=== PATIENT | male | born 1950 | race Caucasian/White ===

== ENCOUNTER 2018-10-12 12:37 | Outpatient (CLI) | payer MEDICARE, BC ==
[2018-10-12 13:39] LABS: #Basophils 0.1 thou/uL (0.0-0.2); #Eosinphils 0.1 thou/uL (0.0-0.7); #Lymphocytes 1.7 thou/uL (1.20-3.40); #Monocytes 0.3 thou/uL (0.11-0.59); #Neutrophils 4.1 thou/uL (1.40-6.50); %Basophils 0.9 % (0.0-1.0); %Lymphocytes 27.4 % (21.0-51.0); %Monocytes 4.5 % (0.0-10.0); %Neutrophils 65.2 % (42.0-75.0); Hemoglobin 13.9 g/dL (14.0-18.0); Mean Corpuscular HGB CONC 34.1 g/dL (32.0-36.0); Mean Corpuscular Hemoglobin 29.1 pg (27.0-31.0); Mean Corpuscular Volume 85.2 fL (78.0-98.0); Mean Platelet Volume 6.2 fL (7.4-10.4); Platelet Count 176 thou/uL (130-400); RBC Distribution Width 11.9 % (11.5-14.5); White Blood Cell (WBC) Count 6.2 thou/uL (4.8-10.8)
--- NOTE | 2018-10-12 23:01 | EKG ---
Test Reason : Blood Pressure : / mmHG Vent. Rate : 052 BPM Atrial Rate : 052 BPM P-R Int : 152 ms QRS Dur : 072 ms QT Int : 410 ms P-R-T Axes : 074 081 059 degrees QTc Int : 381 ms Sinus bradycardia Cannot rule out Anterior infarct , age undetermined Abnormal ECG When compared with ECG of 12-MAR-2015 12:08, Minimal criteria for Anterior infarct are now Present T wave inversion no longer evident in Inferior leads Confirmed by Stella HARRELL ([id number]) on 10/12/2018 11:01:06 PM Referred By: DERRICK Confirmed By:Stella HARRELL
== END 2018-10-12 12:38 | disposition home or self-care (01) ==
LOC: LABBT 12:37
PROVIDERS: ATTEND Surgery
DX: Z01.818 Encounter for other preprocedural examination (principal); K43.9 Ventral hernia without obstruction or gangrene
CPT/HCPCS: 85025; 93005; 93010

== ENCOUNTER → 2018-10-20 | Day surgery (SDC) | payer MEDICARE, BC ==
[2018-10-12 12:49] VITALS: BMI 23.3
[~2018-10-20] MED LIST: Bupivacaine HCl 0.5%/Epinephrine 1:200,000/PF 30 ml Vial ONE; Fentanyl 100 MCG/2 ML VIAL ONE; SUGAMMADEX SODIUM 200 MG/2 ML VIAL ONE; ceFAZolin Sodium (SDC) 2 GM/100 ML BAG ONE
[2018-10-20 06:55] LABS: ALT (SGPT) 24 U/L (8-55); AST (SGOT) 27 U/L (5-34); Albumin 4.2 g/dL (3.4-4.8); Alkaline Phosphatase 76 U/L (40-150); Anion Gap 15 mmol/L (10-20); BUN (Urea Nitrogen) 12 mg/dL (8.4-25.7); Bilirubin, Total 0.4 mg/dL (0.2-1.2); Calc. Creatinine Clearance 74 mL/min (70-130); Calcium 8.9 mg/dL (7.8-10.44); Carbon Dioxide 22 mmol/L (23-31); Chloride 103 mmol/L (98-107); Estimated GFR-MDRD 89; Globulin 3.3 g/dL (2.4-3.5); Glucose 106 mg/dL (80-115); Potassium 3.7 mmol/L (3.5-5.1); Protein, Total 7.5 g/dL (5.8-8.1); Sodium 136 mmol/L (136-145)
--- NOTE | 2018-10-20 10:29 | OP ---
DATE OF PROCEDURE: 10/20/2018 PREOPERATIVE DIAGNOSIS: Epigastric ventral hernia. PROCEDURE PERFORMED: Open ventral hernia repair with mesh. INDICATIONS: A 68-year-old male with enlarging painful bulge just above the umbilicus. He had about a 6-cm bulge. FINDINGS: A 1.5 cm defect, 6.4-cm PROCEED mesh used to repair. DESCRIPTION OF PROCEDURE: After informed consent was obtained, the patient was taken the operating room, given general endotracheal anesthesia, placed in the supine position. Abdomen was prepped and draped in usual fashion. Local anesthesia was infiltrated subcutaneously and deep. An upper midline incision was performed. Subcu divided sharply. The hernia was dissected out circumferentially down to the fascia. The preperitoneal fat was reduced, leaving a 1.5 cm defect. A 6.4-cm PROCEED mesh was hydrated, inserted subfascially, tucked under the fascia, sutured to the fascia with interrupted 0 Ethibond suture circumferentially. Hemostasis was assured. Subcu reapproximated with interrupted 3-0 Vicryl. Skin closed with a running subcuticular 4-0 Rapide. Steri-Strips applied. Sterile bandage applied. The patient tolerated the procedure well, transferred to Recovery in good condition. Sponge and needle count verified correct x2. Job ID: [id number]
== END ==
LOC: SDC 05:45
PROVIDERS: ATTEND Surgery
PROC: 0WUF0JZ Supplement Abdominal Wall with Synthetic Substitute, Open Approach (ICD-10-PCS; principal; 2018-10-20)
DX: K43.9 Ventral hernia without obstruction or gangrene (principal); F41.9 Anxiety disorder, unspecified; Z79.899 Other long term (current) drug therapy
CPT/HCPCS: 80053; J0131; J0670; J0690; J3010